=== PATIENT | male | born 1960 | race Caucasian/White ===

== ENCOUNTER 2022-07-16 04:12 | Day surgery (SDC) | payer BC ==
[2022-07-15 10:24] VITALS: BMI 26.2
[2022-07-16] MEDS ORDERED: ceFAZolin SODIUM 1 GM VIAL IVPB ONE ×3 (11:20→12:40)
[2022-07-16] MEDS ORDERED: oxyCODONE HCL 5 MG TABLET PO PRN (12:17)
[2022-07-16] MEDS ORDERED: ONDANSETRON 4 MG/2 ML VIAL IVPUSH PRN (12:17)
[2022-07-16] MEDS ORDERED: MIDAZOLAM HCL 2 MG/2 ML SINGLE DOSE VIAL ONE (12:22)
[2022-07-16] MEDS ORDERED: PROPOFOL 20 ML ONE (12:22)
[2022-07-16] MEDS ORDERED: LACTATED RINGERS SOLUTION 1,000 ML IV SCH (12:30)
[2022-07-16 16:56] VITALS: RESP 16
[2022-07-16 18:20] VITALS: BP 139/80; PULSE 70; TEMP 97.7
== END 2022-07-16 18:35 | disposition home or self-care (01) ==
LOC: JASU-SURG 04:12
PROVIDERS: ATTEND Urology
PROC: 0VB08ZX Excision of Prostate, Via Natural or Artificial Opening Endoscopic, Diagnostic (ICD-10-PCS; 2022-07-16)
PROC: 0TCB8ZZ Extirpation of Matter from Bladder, Via Natural or Artificial Opening Endoscopic (ICD-10-PCS; principal; 2022-07-16 12:00)
DX: N40.1 Benign prostatic hyperplasia with lower urinary tract symptoms (principal); N21.0 Calculus in bladder
CPT/HCPCS: 36415; 82360; 87086; 88108; 88304-TC; 88305-TC; 94760